=== PATIENT | female | born 1990 | race American Indian/Alaskan Native ===

== ENCOUNTER 2016-11-02 08:22 | Emergency (ER) | payer OTHER ==
[2016-11-02 08:37] VITALS: BP 128/70
--- NOTE | 2016-11-02 09:10 | XRay Report ---
Right foot 3 views: History: Right foot injury. Findings: No fracture, periosteal reaction or lytic lesion. Impression: No evidence of acute fracture.
--- NOTE | 2016-11-02 09:55 | Emergency Department Report ---
ED Lower Extremity HPI - General Chief Complaint: Extremity Injury, Lower Stated Complaint: RT FOOT INJURY Time Seen by Provider: 11/02/16 09:34 Source: patient Mode of arrival: Ambulatory Limitations: No Limitations - History of Present Illness Initial Comments: Patient comes into the ER today with complaints of right foot pain and swelling for the past 3 months. Patient states that approximately 3 months ago she dropped a laptop on her foot and injured her right third and fourth toes. Patient states that she was seen in an emergency department in [place] and was placed in a walking boot and told that she had a lot of bleeding in her 2 toes. Since that time, patient has been wearing the boot nonstop and notes that every time she takes the boot off her foot swells more and is very painful. Patient states that movement of her right third and fourth toes causes bad pain. Patient does state that the swelling goes down after she stays off of her feet and soaks her feet in the tub. Patient came in today because of the continued problems. She denies any chest pain, shortness of breath. MD Complaint: foot injury -: month(s) (3) - Related Data Previous Rx's Medication Instructions Recorded Last Taken Type Naproxen [Naprosyn TAB] 500 mg PO BID #20 tablet 11/02/16 Unknown Rx traMADol [Ultram 50 MG tab] 50 mg PO Q6HR PRN #20 tablet 11/02/16 Unknown Rx Allergies Allergy/AdvReac Type Severity Reaction Status Date / Time No Known Allergies Allergy Verified 11/02/16 08:38 ED Review of Systems ROS: Stated complaint: RT FOOT INJURY Other details as noted in HPI Constitutional: denies: chills, fever Eyes: denies: eye pain, eye discharge, vision change ENT: denies: ear pain, throat pain Respiratory: denies: cough, shortness of breath, wheezing Cardiovascular: denies: chest pain, palpitations Endocrine: no symptoms reported Gastrointestinal: denies: abdominal pain, nausea, diarrhea Genitourinary: denies: urgency, dysuria, discharge Musculoskeletal: joint swelling, arthralgia. denies: back pain Skin: denies: rash, lesions Neurological: denies: headache, weakness, paresthesias Psychiatric: denies: anxiety, depression Hematological/Lymphatic: denies: easy bleeding, easy bruising ED Past Medical Hx - Past Medical History Previous Medical History?: Yes Additional medical history: Low Blood Pressure - Surgical History Past Surgical History?: Yes Additional Surgical History: 2013 - Social History Smoking Status: Never Smoker Substance Use Type: None - Medications Home Medications: Home Medications Medication Instructions Recorded Confirmed Last Taken Type Naproxen [Naprosyn TAB] 500 mg PO BID #20 tablet 11/02/16 Unknown Rx traMADol [Ultram 50 MG tab] 50 mg PO Q6HR PRN #20 tablet 11/02/16 Unknown Rx ED Physical Exam - General Limitations: No Limitations General appearance: alert, in no apparent distress - Head Head exam: Present: atraumatic, normocephalic - Eye Eye exam: Present: normal appearance - ENT ENT exam: Present: mucous membranes moist - Neck Neck exam: Present: normal inspection - Respiratory Respiratory exam: Present: normal lung sounds bilaterally. Absent: respiratory distress - Cardiovascular Cardiovascular Exam: Present: regular rate, normal rhythm. Absent: systolic murmur, diastolic murmur, rubs, gallop - GI/Abdominal GI/Abdominal exam: Present: soft, normal bowel sounds - Extremities Exam Extremities exam: Present: normal inspection, tenderness (tenderness noted to right third and fourth toes extending back into MTP joints.), normal capillary refill, joint swelling (mild soft tissue swelling noted to right foot dorsally and into MTP joints.). Absent: full ROM (Limited range of motion of right third and fourth toes secondary to pain), calf tenderness - Back Exam Back exam: Present: normal inspection - Neurological Exam Neurological exam: Present: alert, oriented X3, CN II-XII intact. Absent: motor sensory deficit - Psychiatric Psychiatric exam: Present: normal affect, normal mood - Skin Skin exam: Present: warm, dry, intact, normal color. Absent: rash ED Course Vital Signs 11/02/16 08:36 Temperature 98.3 F Pulse Rate 60 Respiratory 16 Rate Blood Pressure 128/70 [Right] O2 Sat by Pulse 98 Oximetry ED Lower Extremity MDM - Radiology Data Radiology results: report reviewed Right foot x-ray: No acute bone pathology noted. - Medical Decision Making Patient is nontoxic and hemodynamically stable. X-ray results reviewed and discussed the patient room. Patient already wearing a walking boot upon initial evaluation. I informed patient that there is no bone injury noted but that due to her continued duration of symptoms, I am somewhat concerned for possible soft tissue damage such as ligaments, tendons, nerve damage. I will refer patient to podiatry for further evaluation. I have encouraged patient to continue wearing the walking boot as needed for comfort and to limit any upright ambulation or weightbearing. Patient is in agreement with treatment plan patient is stable for discharge. Critical care attestation.: If time is entered above; I have spent that time in minutes in the direct care of this critically ill patient, excluding procedure time. ED Disposition Clinical Impression: Right foot pain, Contusion of foot, right Disposition: DC- TO HOME OR SELFCARE Is pt being admited?: No Does the pt Need Aspirin: No Condition: Good Instructions: Foot Contusion (ED) Prescriptions: Naproxen [Naprosyn TAB] 500 mg PO BID #20 tablet traMADol [Ultram 50 MG tab] 50 mg PO Q6HR PRN #20 tablet PRN Reason: Pain Referrals: BRENDAN HAWK JR, MD [Primary Care Provider] - 3-5 Days JENNIFER WILLIS DPM [Staff Physician] - 3-5 Days Forms: Work/School Release Form(ED) Time of Disposition: 09:57
== END 2016-11-02 10:39 | disposition home or self-care (01) ==
LOC: ED 08:22
DX: S90.31XA Contusion of right foot, initial encounter (principal); W04.XXXA Fall while being carried or supported by other persons, initial encounter; Y93.89 Activity, other specified; Y99.9 Unspecified external cause status; Y92.89 Other specified places as the place of occurrence of the external cause